=== PATIENT | female | born 1990 | race Caucasian/White ===

== ENCOUNTER 2021-08-31 11:04 | Outpatient (CLI) | payer OTHER, SELFPAY ==
--- NOTE | ~2021-08-31 | US_ITS ---
EXAMINATION: US pelvic complete w TV DATE: 08/31/2021 11:53 INDICATION: Right ovarian cyst Comparison:Ultrasound dated 07/11/2018 TECHNIQUE: Multiple transabdominal and endovaginal sonographic images of the pelvis performed. FINDINGS: The uterus measures 5.2 x 3.9 x 3.1 cm. The endometrial complex measures 3 mm. The right ovary measures 3.4 x 2.8 x 1.8 cm and the left ovary measures 3 x 2 x 1.9 cm. There are sm all follicles in each ovary. Normal doppler signal in both ovaries. There is no free fluid in the pelvis. There are no abnormal masses seen on either side. IMPRESSION: 1. Unremarkable pelvic ultrasound. Reviewed, dictated and finalized at location A. ER CUTTER
== END 2021-08-31 11:05 | disposition home or self-care (01) ==
PROVIDERS: PCP Emergency Medicine; Visit Provider Obstetrics & Gynecology
DX: N83.201 Unspecified ovarian cyst, right side (principal)
CPT/HCPCS: 76830; 76856

== ENCOUNTER → 2023-12-22 11:19 | Outpatient (CLI) | payer OTHER, SELFPAY ==
--- NOTE | ~2023-12-22 | US_ITS ---
EXAMINATION: US pelvic complete w TV DATE: 12/22/2023 11:42 INDICATION: Pelvic pain, polycystic ovarian syndrome TECHNIQUE: Multiple transabdominal and endovaginal sonographic images of the pelvis were obtained. COMPARISON: 08/31/2021 FINDINGS: The uterus measures 7.0 x 4.3 x 3.7 cm. The endometrial complex measures 6 mm. The right ov ryann measures 7.0 x 6.1 x 4.9 cm. There is a 6.1 x 5.7 x 4.5 cm complex cystic lesion of the right adn exa with an approximately 5.5 cm solid component. The margins of the solid component concave and no a ssociated internal vascularity is identified The left ovary measures 2.4 x 2.0 x 1.8 cm. There is nor mal vascular flow in the ovaries. There is no free fluid in the pelvis. IMPRESSION: 1. Probable hemorrhagic cyst of the right ovary. Follow-up ultrasound in 8-12 weeks is recommended. Reviewed, dictated and finalized at location F. TRY BARN MANAGER IMPRESSION: 1. Probable hemorrhagic cyst of the right ovary. Follow-up ultrasound in 8-12 w eeks is recommended.
== END ==
PROVIDERS: PCP Obstetrics & Gynecology; Visit Provider Obstetrics & Gynecology
DX: R10.2 Pelvic and perineal pain (principal)
CPT/HCPCS: 76830; 76856

== ENCOUNTER 2024-01-08 07:48 | Outpatient (CLI) | payer OTHER, SELFPAY ==
--- NOTE | ~2024-01-08 | US_ITS ---
Pelvic ultrasound. Clinical History: Ovarian cyst Technique: Realtime transabdominal and transvaginal scanning of the pelvis was performed. Color flow Doppler and Doppler spectral analysis were performed. Findings: The uterus is anteverted. The endometrial stripe has a thickness of 3 mm. No focal mass is identified. The right ovary measures 3.4 x 3.2 x 2.4 cm. Right ovarian cyst measures 2.4 cm in maximum diameter. The left ovary measures 2.7 x 1.9 x 2.2 cm. No significant left ovarian or adnexal mass is seen. There is no evidence of free fluid in the cul de sac. Impression: Small right ovarian cysts, as above, of doubtful clinical significance. Reviewed, dictated and finalized at [facility]. Impression: Small right ovarian cysts, as above, of doubtful clinical significance.
== END 2024-01-08 07:49 ==
PROVIDERS: PCP Emergency Medicine; Visit Provider Obstetrics & Gynecology
DX: N83.201 Unspecified ovarian cyst, right side (principal)
CPT/HCPCS: 76830; 76856

== ENCOUNTER 2024-07-05 02:03 | Day surgery (SDC) | payer OTHER, SELFPAY ==
[2024-06-26 10:47] VITALS: BMI 25.4
--- NOTE | 2024-06-26 11:00 | PC.NURSE ---
Report to the Outpatient Waiting Room, entrance under the green pavilion located off [facility], at time on date . Planned Procedure Time: .? Time changes happen often and if your time is changed the preop area will call you the afternoon before. - You and your visitor will be asked to self-screen and do not enter if you have any COVID symptoms. Please call surgeon if you need to reschedule. - A mask is optional within the hospital at this time. Patients may have clear liquids (water, carbonated beverages, clear teas, apple juice) until 3 hours prior to surgery with a maximum of 20 ounces. - No food from midnight until time of surgery and no smoking - Infants may have breast milk until 4 hours before surgery, infant formula 6 hours prior to surgery. - Children will be allowed to drink immediately following surgery.? If applicable, please bring a bottle or sippy cup to assist with drinking. Juice, water, soda, and popsicles are readily available.? For infants on formula, please bring formula the day of surgery.? Pacifiers are allowed. Take only the following medications with a SIP of water on the morning of surgery: DO NOT STOP ANY OF YOUR OTHER PRESCRIPTION MEDICATIONS PRIOR TO SURGERY EXCEPT THE FOLLOWING Medications to discontinue per physician Date to take last dose Please no make-up, nail bulgarian, hairspray, perfume, deodorant, or body powder the day of surgery.? No jewelry (including any body piercings) or valuables the day of surgery, leave them at home.? Please take a shower or bath the night before, or the morning of, surgery with an antibacterial soap.? Wear comfortable, loose fitting clothing.? Children are encouraged to wear pajamas. - Jewelry must be removed prior to entering the operating room.? Rings and piercings that are not removed may be cut off. - The hospital will not accept responsibility for valuables.? - Please leave all valuables, including medications, at home the day of surgery. If you are going home after surgery, a licensed truck driver instructor must drive you home.? - NO public transportation without another adult if you receive anesthesia. - We recommend that an adult stay with you for 24 hours following discharge. - We also recommend that you do not drive, make important decision, drink alcoholic beverages, or take any drugs that were not prescribed by your health care provider for at least 24 hours after your discharge time. For Pediatric surgeries, we recommend two adults accompany the child home. Follow any additional instructions given to you from your surgeon. Telephone instructions given to and asked if any additional questions and then verbalized understanding. Patient advised to call surgeon office or pre surgery nurse liaison [phone] if any additional questions.
--- NOTE | 2024-06-26 11:00 | PC.NURSE ---
Report to the Outpatient Waiting Room, entrance under the green pavilion located off [facility], at time ____1000___ on date _07/05/24 . Planned Procedure Time: __1200 .? Time changes happen often and if your time is changed the preop area will call you the afternoon before. - You and your visitor will be asked to self-screen and do not enter if you have any COVID symptoms. Please call surgeon if you need to reschedule. - A mask is optional within the hospital at this time. Patients may have clear liquids (water, carbonated beverages, clear teas, apple juice) until 3 hours prior to surgery with a maximum of 20 ounces. - No food from midnight until time of surgery and no smoking - Infants may have breast milk until 4 hours before surgery, formula 6 hours prior to surgery. - Children will be allowed to drink immediately following surgery.? If applicable, please bring a bottle or sippy cup to assist with drinking. Juice, water, soda, and popsicles are readily available.? For infants on formula, please bring formula the day of surgery.? Pacifiers are allowed. Take only the following medications with a SIP of water on the morning of surgery: N/A DO NOT STOP ANY OF YOUR OTHER PRESCRIPTION MEDICATIONS PRIOR TO SURGERY EXCEPT THE FOLLOWING Medications to discontinue per physician N/A Date to take last dose N/A Please no make-up, nail romanian, hairspray, perfume, deodorant, or body powder the day of surgery.? No jewelry (including any body piercings) or valuables the day of surgery, leave them at home.? Please take a shower or bath the night before, or the morning of, surgery with an antibacterial soap.? Wear comfortable, loose fitting clothing.? Children are encouraged to wear pajamas. - Jewelry must be removed prior to entering the operating room.? Rings and piercings that are not removed may be cut off. - The hospital will not accept responsibility for valuables.? - Please leave all valuables, including medications, at home the day of surgery. If you are going home after surgery, a licensed car driver must drive you home.? - NO public transportation without another adult if you receive anesthesia. - We recommend that an adult stay with you for 24 hours following discharge. - We also recommend that you do not drive, make important decision, drink alcoholic beverages, or take any drugs that were not prescribed by your health care provider for at least 24 hours after your discharge time. For Pediatric surgeries, we recommend two adults accompany the child home. Follow any additional instructions given to you from your surgeon. Telephone instructions given to Cheryl Gonsales and asked if any additional questions and then verbalized understanding. Patient advised to call surgeon office or pre surgery nurse liaison [phone] if any additional questions.
--- NOTE | 2024-07-05 07:51 | WPDHPUPDATE1 ---
History and Physical Update Update Date/Time: 07/05/24 07:51 History and Physical has been reviewed, including an updated exam of the patient. There are NO changes in the patient's condition. Risks, benefits, and alternatives have been discussed and questions answered. Patient agrees to proceed with marsupialization of left Bartholin's gland.
[2024-07-05] MEDS: LACTATED RINGERS 1,000 ML 30 ML IV CONT ×2 (10:41→13:03)
--- NOTE | 2024-07-05 11:24 | P.PNAN_ITS ---
Anes - Initial Pre Proc Eval Procedure: Operation Date: 07/05/24 12:00 Proposed Procedures p Marsupialization of Left Bartholin's Gland Cyst - Tram Alexander MD Date/Time: 07/05/24 11:24 Surgeon: Tram Alexander MD Pre Op Diagnosis: left bartholin gland cyst Patient Data Age: 33 Gender: F Height: 1.63 m Weight: 67.2 kg Allergies Allergy/AdvReac Type Severity Reaction Status Date / Time Sulfa (Sulfonamide Allergy Intermediate hives Verified 07/05/24 10:19 Antibiotics) azathioprine AdvReac Severe PANCREATITI Verified 07/05/24 10:19 S Home Medications Medication Instructions Recorded Confirmed Type norgestimate-ethinyl estradiol 1 tablet PO DAILY #84 tabs 04/12/24 06/26/24 Rx 0.18 mg/0.215mg/0.25mg-35 mcg(28)tablet Patient hx anesthesia problems: none Family hx anesthesia problems: none Results Review: All pre-operative results and documents have been reviewed as part of the pre- operative evaluation. [facility] Past Medical History Medical History Anxiety Bartholin's gland abscess History of PCOS Ovarian cyst Ovarian cyst, right Surgical History Surgical History History of endoscopy (05/26/21) History of tonsillectomy adenoids Family History Family History Mother Osteoporosis Father Non-Hodgkin lymphoma Social History Social History Smoking status: Never smoker Second hand tobacco smoke exposure: No Alcohol intake: current Drinks per week: 1 Alcohol use details: 2 per month Substance use: never Substance use type: does not use Do You Feel Safe in your Home?: Yes Lack of Transportation: No Lack of Food: Never True Current Housing: I Have Housing Concerned About Future Housing: No Difficulty Paying Gas/Electric Bills: No Difficulty Paying for Meds: No Currently Unemployed: No Education: High School Diploma/GED Living arrangements: with family Additional living arrangements comments: Occupation/Education: other Additional occupation/education comments: stay at home mom Gender identity (if verbalized by the patient): Female Sexual Orientation (if Verbalized by the Patient): Straight or Heterosexual Spiritual care concerns: No Anes - Eval Final PreProcedure Day of Procedure 07/05/24 11:24 Patient weight: normal Heart: regular rate and rhythm Lungs: clear to auscultation Airway: Mallampati scale class II Neurological: alert and oriented Last oral intake: >/= 8 hours ASA classification: II Emergent: no Anesthetic plan: proceed Anesthesia type and monitoring: general GIVS and standard monitoring Results Review: All pre-operative results and documents have been reviewed as part of the pre- operative evaluation. Informed Consent: The patient's anesthetic plan and its attendant risks and benefits were discussed with the patient/family/POA. Questions were solicited and answers provided to the satisfaction of the patient/family/POA.
[2024-07-05 11:30] VITALS: BP 121/77; PULSE 54; RESP 16; TEMP 36.8; O2SAT 100
[2024-07-05 11:35] LABS: BEDSIDEPREGUCG Negative (Negative)
[2024-07-05] MEDS: ceFAZolin 2 GM/D5W 50 ML 2 GM/50 ML BAG IVPB (12:19)
[2024-07-05] MEDS: LIDO 1%/EPINEPHRINE 1:100,000 20 ML VIAL 9 ML INFILTRATE (12:57)
[2024-07-05 13:03] VITALS: BP 136/95; PULSE 82; RESP 16; O2SAT 98
--- NOTE | 2024-07-05 13:04 | W.PM.PROC2 ---
Procedure Note - Detailed Date of Procedure 07/05/24 Pre-op Diagnosis left bartholin gland cyst Post-op Diagnosis Same Procedure Performed Left bartholin's gland excision Surgeon Tram Alexander MD Anesthesia MAC and Local (9cc of 1% lidocaine with epi) Findings Left Bartholin's gland smaller than previously noted in clinic; now 1.5-2cm. Left gland entered into but scared and unable to just perform marsupialization. Gland/scar tissue was removed. Slight increase in bleeding noted and pressure held for approximately 5 minutes. Good hemostasis noted, no hematoma noted at end of case. Description of Procedure Cheryl was taken to the operating room where she was placed under sedation without complications. She was then prepped and draped in the usual sterile fashion in the dorsal lithotomy position with her legs in low David stirrups. A time-out was performed and she received 2g Ancef IV. The left Bartholin's gland was noted to be much smaller than it was in clinic. I was able to palpate it and a louis shape skin incision was made in the overlying tissue. The gland was entered into and a significant amount of scar tissue was noted; marsupialization was not possible. I identified and dissected out the gland/scar tissue using tension, counter traction, and Metzenbaum scissors. Small blood vessels were coagulated using Bovie cautery. The area was infiltrated with lidocaine with epinephrine. The defect was reapproximated using 2-0 Vicryl filling the space and better hemostasis was noted. The skin was then reapproximated with 3-0 Vicryl in the normal fashion. Pressure was then held for approximately 5 minutes and the incision was monitored; no additional bleeding was noted and there was no concern for hematoma. All instruments were removed from the surgical field. Sponge, lap, instrument, and needle counts were correct at the end of the procedure. Patient was awoken from anesthesia and taken to recovery with plans of same-day discharge home. Estimated Blood Loss 50 IV Fluids 1,000 Pathology Yes Complications No immediate complications Condition Stable Disposition Same day [facility] Billing Surgery - Charge Forward: Surgery Billing
[2024-07-05 13:30] VITALS: BP 101/46; PULSE 60; RESP 16
[2024-07-05 14:00] VITALS: BP 105/72; PULSE 59; RESP 16
[2024-07-05 14:25] VITALS: BP 111/61; PULSE 56; RESP 16
== END 2024-07-05 14:28 | disposition home or self-care (01) ==
PROVIDERS: PCP Emergency Medicine; Visit Provider Obstetrics & Gynecology
PROC: (CPT 56440; principal; 2024-07-05 12:00)
DX: N75.1 Abscess of Bartholin's gland (principal); N89.8 Other specified noninflammatory disorders of vagina; F41.9 Anxiety disorder, unspecified; E28.2 Polycystic ovarian syndrome; Z98.890 Other specified postprocedural states; Z80.7 Family history of other malignant neoplasms of lymphoid, hematopoietic and related tissues
CPT/HCPCS: 56740; 88304; J0690; J1100; J1885; J2250; J2405; J2704; J3010; J7120